=== PATIENT | female | born 1990 | race Caucasian/White ===

== ENCOUNTER → 2018-05-03 | Outpatient (CLI) | payer BC ==
[~2018-05-03] MED LIST: MOTRIN 600600 MG/TAB PO; PERCOCET 325 MG1 TA2 PO; PRENATABS RX1 TAB PO; ZANTAC 150MG T150 MG PO; [UNRECOGNIZED DRUG - OTHER]
== END ==
LOC: SUN.DIA 10:14
DX: O24.419 Gestational diabetes mellitus in pregnancy, unspecified control (principal); Z3A.31 31 weeks gestation of pregnancy
CPT/HCPCS: G0108

== ENCOUNTER → 2018-05-08 | Outpatient (CLI) | payer BC | LOC: SUN.DIA 10:18 | DX: O24.419 Gestational diabetes mellitus in pregnancy, unspecified control (principal); Z3A.31 31 weeks gestation of pregnancy | CPT/HCPCS: G0108 ==

== ENCOUNTER → 2018-05-29 | Outpatient (CLI) | payer BC | LOC: SUN.DIA 08:47 | DX: O24.419 Gestational diabetes mellitus in pregnancy, unspecified control (principal); Z3A.34 34 weeks gestation of pregnancy | CPT/HCPCS: G0108 ==

== ENCOUNTER 2018-07-11 06:58 | Inpatient (IN) | payer BC ==
[~2018-07-11] VITALS: Ht 170.2 cm; Wt 89.5 kg
[2018-07-11] VITALS (65 sets, daily range): BP systolic 69–146; BP diastolic 47–82; PULSE 46–125; TEMP 09.1
--- NOTE | 2018-07-11 07:47 | NUR ---
0715 PATIENT HERE FOR INDUCTION OF LABOR. ASSESSMENT COMPLETED. VITAL SIGNS WNL. EFM ON FHT 128 BABY VERY ACTIVE, ACCELERATIONS NOTED. IV STARTED IN LEFT WRIST AND LR HUNG PATIENT DENIES NEEDS AT THIS TIME.
[2018-07-11 07:57] LABS: BASO % 0.4 % (0.0-2.0); EOS % 0.5 % (0-4.0); GRAN # 5.9 (1.4-6.5); GRAN % 69.1 % (42.2-75.2); HEMOGLOBIN 12.7 g/dl (12.5-16.0); LYMPH # 2.1 (1.2-3.4); LYMPH % 24.2 % (20.0-51.0); MEAN CELL VOLUME 90 fl (80.0-100.0); MEAN CORPUSCULAR HEMOGLOBIN 32 pg (27.0-31.0); MEAN CORPUSCULAR HGB CONC 35 g/dl (33.0-37.0); MEAN PLATELET VOLUME 10.6 fl (7.4-10.4); MONO # 0.5 (0.1-0.6); MONO % 5.6 % (1.7-9.3); PLATELET COUNT 187 K/mm3 (130-400); RED BLOOD COUNT 3.98 M/mm3 (4.10-5.30); REDCELL DISTRIBUTION WIDTH-CV 12.9 % (11.5-14.5)
[2018-07-11 07:58] LABS: HEMATOCRIT 35.9 % (37.0-47.0)
--- NOTE | 2018-07-11 16:33 | NUR ---
1600 CONTRACTIONS GETTING MORE INTENSE PER PATIENT. SVE /-2. Kellie LUO CALLED FOR EPIDURAL PLACEMENT . 1610 PATIENT SITS UP ON EDGE OF BED, Kellie LUO POLARITY TESTER AT BEDSIDE FOR EPIDURAL. PATIENT TOLERATES WELL. DENIES NEEDS. BREATHS THROUGH EACH CONTRACTION. FHT 120.SEE POLARITY TESTER FOR QUESTIONS
--- NOTE | 2018-07-11 16:37 | NUR ---
8969 DR LASSITER CALLED FOR UPDATE. REPORT GIVEN. NO NEW ORDERS. WILL BE AT HOSPITAL SOON.
--- NOTE | 2018-07-11 17:07 | NUR ---
1645 BP 101/54 PATIENT FEELING NAUSEATED. EPHEDRINE 10 MG IV GIVEN AT THIS TIME. 1655 BP 69/47 DIZZY AND NAUSEATED. EPHEDRINE 10 MG IV GIVEN.
--- NOTE | 2018-07-11 17:18 | NUR ---
BLOOD SUGARS 0700 129 0900 91 1100 77 1300 73 1500 69 1700 70
--- NOTE | 2018-07-11 18:24 | NUR ---
at bedside. SVE 8/90/0. Plan of care explained to pt per provider. 1850: Pt respositioned to wedge left position. Pt sat up to remove bra, difficulties tracing FHR due to maternal position. 1855: Pt feeling nauseated after moving around in bed. Zofran 4mg IV administered per orders. Pts blood sugar 87 at this time. 1899: Pt starting to feel a lot of pressure. SVE C/+1. Practice push at this time with this RN. Pt moves vertex well. Pericare provided and pads changed. Plan of care explained to pt and who verbalize their understanding. 1906: updated on pts status. See physican notification. 1912: Ritchie removed 125mls of yellow/clear urine noted. 1918: Instructions on pushing with contractions given to pt and pt begins pushing with this RN. 1921: at bedside and assess pushing. Pt continues pushing with this RN and provider to stay at nurses station. 1932: requested at bedside for delivery. Pt assisted into footplates and begins pushing with provider. 1937: Audible FHR noted 90'sbmp. remains at bedside assess FHR strip. 1941: Spontaneous vaginal delivery of viable female by . Pitocin stopped. to mother's chest where stimulated and dried by nursery RN. Cord clamped X2 and cut by FOB. Care of infant assumed by Ruddy SANCHES. 2013: Placenta manually extracted by . Placenta intact. No lacerations noted. Pericare provided, pads changed and ice pack applied. Fundus firm midline and bleeding moderate with small clots notes. remains at bedside assessing bleeding. No orders received. Plan of care and safety precautions explained to pt and who verbalize understanding. 2032: Pt sitting up in bed stating she is not feeling well. States she is tired and lightheaded. BP 93/49 Pulse 106. BP retake 92/51. 2034: Ephedrine 10mgs administered per oders and pt laid flat in bed. LR bolus infusing. 2041: Pt still not feeling well and unable to hold . BP 80/48 pulse 121, Ephedrine 10mg administered. Fundus firm and midline, bleeding moderate with small clots noted, no free flow noted. 2044: updated on pts status. See physican notification. BP noted 119/58 pulse 104. Pt states she is starting to feel a little better. 2099: Fundus firm, midline and bleeding moderate. Straight catherization completed at this time. 100mls of yellow/clear urine noted. Pt starting to feel much better. BP 116/57, pulse 96. Plan of care explained to pt and . Call light within reach. Will continue to monitor closely.
--- NOTE | 2018-07-11 23:40 | NUR ---
Pt able to hold lega up bilaterally for 5 seconds. Fundus firm, midline and bleeding minimal. Pt assisted to edge of bed. Epidural cathater removed prior without difficulties and no signs of inflammation or infection. Pt denies dizziness or lightheadedness. Pt ambulatory to bathroom standby assist. Pt able to void 1600mls without difficulties. Pericare and education provided to pt. Meshpanties, pad, ice pack and tucks applied. Pt ambulatory to room 207 standby assist. Pt oriented to room. Call light within reach. Will continue to monitor.
[2018-07-12 00:20] VITALS: BP 111/62; PULSE 97; TEMP 98
[2018-07-12 04:15] VITALS: BP 109/63; PULSE 88; TEMP 97.5
--- NOTE | 2018-07-12 07:15 | NUR ---
Rests in bed, alert. Lab here, blood drawn. Baby handed to patient. at this time.
[2018-07-12 07:28] LABS: HEMATOCRIT 31.2 % (37.0-47.0); HEMOGLOBIN 10.6 g/dl (12.5-16.0)
[2018-07-12 08:00] VITALS: BP 101/62; PULSE 88; TEMP 97.6
[2018-07-12] MEDS ORDERED: IBU600 MG PO (08:16)
--- NOTE | 2018-07-12 09:08 | NUR ---
Initial visit; Patient and family thanked [employer] Worker for offering congratulations for the of their baby girl and for thanking them for choosing [facility].
--- NOTE | 2018-07-12 09:15 | NUR ---
1000 Ibuprofen 600 mg p.o. given as ordered and per request.
[2018-07-12 12:30] VITALS: BP 111/68; PULSE 85; TEMP 97.9
[2018-07-12 17:30] VITALS: BP 117/68; PULSE 81; TEMP 97.4
--- NOTE | 2018-07-12 17:30 | NUR ---
Rests in bed, alert, family at bedside. Ibuprofen 600 mg p.o. given per request and as ordered.
== END 2018-07-12 21:00 | disposition home or self-care (01) | DRG 806 ==
LOC: LDR 06:58 → OB 07-12 00:13
PROVIDERS: ADMIT Obstetrics & Gynecology
PROC: 10E0XZZ Delivery of Products of Conception, External Approach (ICD-10-PCS; principal; 2018-07-11)
PROC: 10D17Z9 Manual Extraction of Products of Conception, Retained, Via Natural or Artificial Opening (ICD-10-PCS; 2018-07-11)
PROC: 3E033VJ Introduction of Other Hormone into Peripheral Vein, Percutaneous Approach (ICD-10-PCS; 2018-07-11)
PROC: 10907ZC Drainage of Amniotic Fluid, Therapeutic from Products of Conception, Via Natural or Artificial Opening (ICD-10-PCS; 2018-07-11)
DX: O24.420 Gestational diabetes mellitus in childbirth, diet controlled (principal); O63.9 Long labor, unspecified; Z37.0 Single live birth; Z3A.39 39 weeks gestation of pregnancy; Z28.21 Immunization not carried out because of patient refusal
CPT/HCPCS: J2405; J2590; J2795; J7120

== ENCOUNTER 2020-04-10 17:07 | Observation (INO) | payer BC ==
[2020-04-10] VITALS (9 sets, daily range): BP systolic 110–130; BP diastolic 60–89; PULSE 77–91; TEMP 98.1–98.7
[~2020-04-10 17:07] MED LIST changes: -IBU800 M1 PO
--- NOTE | 2020-04-10 17:35 | NUR ---
Patient ambulatory to 221 and plan of care discussed and questions answered. Patient states pain started around monday and is currently rating it a 5. 1740: IV started in right hand, blood obtained and to lab, LR infusing. Consent signed and plan of care discussed. Assessment completed. VSS.
[2020-04-10 18:00] LABS: HEMATOCRIT 38.4 % (37.0-47.0); HEMOGLOBIN 13.3 g/dl (12.5-16.0); MEAN CELL VOLUME 88 fl (80.0-100.0); MEAN CORPUSCULAR HEMOGLOBIN 30 pg (27.0-31.0); MEAN CORPUSCULAR HGB CONC 35 g/dl (33.0-37.0); MEAN PLATELET VOLUME 9.4 fl (7.4-10.4); PLATELET COUNT 217 K/mm3 (130-400); RED BLOOD COUNT 4.38 M/mm3 (4.10-5.30)
[2020-04-10] MEDS ORDERED: PERCOCET 325 MG1 TA2 PO (19:56)
[2020-04-10] MEDS ORDERED: IBU800 M1 PO (19:58)
--- NOTE | 2020-04-10 20:05 | NUR ---
To room via bed from PACU, accompanied by PACU nurse. Pt drowsy, awakens easily, oriented. Plan of care briefly reviewed. Encouraged to rest.
--- NOTE | 2020-04-10 23:00 | NUR ---
Pt states "I'm ready to go home." INT dc'd, discharge instructions reviewed with pt and spouse, questions invited and answered. Off unit via wheelchair.
== END 2020-04-10 23:10 | disposition home or self-care (01) ==
LOC: LDRO 17:07 → SDCO 17:07 → OB 17:08 → EDSTATUS 17:19 → OB 19:59 → SDCO 19:59 → OB 23:10
PROVIDERS: ADMIT Student in an Organized Health Care Education/Training Program
DX: N83.11 Corpus luteum cyst of right ovary (principal); R10.31 Right lower quadrant pain; Z86.32 Personal history of gestational diabetes; Z88.0 Allergy status to penicillin
CPT/HCPCS: OP; G0378; J7120

== ENCOUNTER → 2020-04-10 | Outpatient (CLI) | payer BC ==
[~2020-04-10] MED LIST changes: +IBU600 MG PO; +IBU800 M1 PO
== END ==
LOC: COL.RAD 12:22
DX: R19.09 Other intra-abdominal and pelvic swelling, mass and lump (principal)
CPT/HCPCS: J1100; J1885; J2405; J2704; J3010; J7120; Q9967

== ENCOUNTER 2021-05-21 18:15 | Emergency (ER) | payer BC ==
[~2021-05-21] VITALS: Ht 172.7 cm; Wt 81.8 kg
[~2021-05-21 18:15] MED LIST changes: +IBU800 M1 PO
[2021-05-21 18:41] VITALS: TEMP 98
[2021-05-21 20:05] VITALS: BP 126/87; PULSE 80
== END 2021-05-21 20:05 | disposition home or self-care (01) ==
LOC: COL.ER 18:15
DX: S50.02XA Contusion of left elbow, initial encounter (principal); W22.8XXA Striking against or struck by other objects, initial encounter; Y93.01 Activity, walking, marching and hiking